=== PATIENT | male | born 1965 | race African-American/Black ===

== ENCOUNTER 2024-04-09 15:01 | Emergency (ER) | payer OTHER ==
[2024-04-09 15:32] LABS: Bilirubin Small (Negative); Blood, Urine Large (Negative); Glucose, Urine (Dipstick) Negative (Negative); Ketone, Urine Negative (Negative); Leukocyte Large (Negative); Nitrite Positive (Negative); Protein, Urine (Dipstick) > or equal to 300 mg/dL (Neg-Trace); Urobilinogen 0.2 mg/dL (Less than 2); pH, Urine 6.5 (5.0-9.0)
[2024-04-09 15:33] LABS: Clarity Cloudy (Clear)
[2024-04-09 15:34] LABS: Bacteria/HPF Rare-Few HPF (None Seen); CAUTI Indications for Culture Dysuria,urgency,freq; RBC/HPF Greater than 50 HPF (0-3); Squamous Epithelial 0-3 HPF (0-3); WBC/HPF Greater Than 50 HPF (0-3)
[2024-04-09 15:35] LABS: Urine Culture Reflex Yes Yes
== END 2024-04-09 15:57 | disposition home or self-care (01) ==
LOC: MADERS 15:01
DX: N39.0 Urinary tract infection, site not specified (principal); K64.9 Unspecified hemorrhoids; F17.220 Nicotine dependence, chewing tobacco, uncomplicated
CPT/HCPCS: 81001; 87086; 99283

== ENCOUNTER 2024-07-20 11:20 | Emergency (ER) | payer OTHER, MEDICAID ==
[2024-07-20] MEDS ORDERED: Lidocaine 4% Patch ONE (11:48)
== END 2024-07-20 12:40 | disposition home or self-care (01) ==
LOC: MADERS 11:20
DX: M54.50 Low back pain, unspecified (principal); F17.220 Nicotine dependence, chewing tobacco, uncomplicated; E66.9 Obesity, unspecified; V89.2XXA Person injured in unspecified motor-vehicle accident, traffic, initial encounter; Z59.00 Homelessness unspecified; Z60.3 Acculturation difficulty; Z59.71 Insufficient health insurance coverage; Z55.0 Illiteracy and low-level literacy; Z86.73 Personal history of transient ischemic attack (TIA), and cerebral infarction without residual deficits; Z79.899 Other long term (current) drug therapy
CPT/HCPCS: 99282

== ENCOUNTER 2024-09-26 05:15 | Emergency (ER) | payer OTHER ==
[2024-09-26] MEDS ORDERED: Ketorolac Tromethamine 30 MG (1 mL) VIAL ONE (05:53)
== END 2024-09-26 06:05 | disposition home or self-care (01) ==
LOC: MADERS 05:15
DX: M54.50 Low back pain, unspecified (principal); F17.220 Nicotine dependence, chewing tobacco, uncomplicated
CPT/HCPCS: 96372; 99283; J1885